=== PATIENT | female | born 1990 | race Hispanic/Latino ===

== ENCOUNTER 2020-12-09 14:54 | Emergency (ER) | payer OTHER ==
--- NOTE | 2020-12-09 16:35 | Emergency Department Report ---
ED General Adult HPI - General Chief complaint: Medical Clearance Stated complaint: AMS/ETOH PUI?: No Time Seen by Provider: 12/09/20 15:41 Source: patient, EMS ( EMS documentation not available at time of chart dictation ), RN notes reviewed Mode of arrival: Stretcher Limitations: Other (Patient not forthcoming) - History of Present Illness Initial comments: The patient was evaluated in the emergency department for symptoms described in the history of present illness. He/she was evaluated in the context of the global COVID-19 pandemic, which necessitated consideration that the patient might be at risk for infection with the virus that causes COVID-19. Institutional protocols and algorithms that pertain to the evaluation of patients at risk for COVID-19 are in a state of rapid change based on information released by regulatory bodies including the CDC and federal and state organizations. These policies and algorithms were followed during the patient's care in the emergency department. Please note that these policies, procedures and recommendations changed on a rapid basis. This is a 30-year-old female. She is not known to myself previously. She is brought to the hospital by police department and EMS for medical clearance for incarceration. EMS documentation is not available for my personal review. In addition, the original officers involved in her arrest, and who originally contacted medical services are not available for me to obtain collateral information. The patient is currently accompanied by Officer Gael Lira, who contacted his sergeant, however, they were not able to get me in contact with original arresting offices. History obtained from patient, and from nursing documentation reviewed. Apparently, this patient had a warrant out for her arrest, and apparently while getting arrested, began to act bizarrely, and may have had convulsions. The patient has no recollection of this event. The patient states that she has no headache, neck pain, chest pain, abdominal pain or shortness of breath. She denies Covid symptomatology. She is not homicidal or suicidal, and she is not experiencing hallucinations. She does not have access to guns or firearms. She does not recall the event. She states that she is not . She denies fever, chills, focal extremity weakness/numbness. She complains of nontraumatic left-sided otalgia/ear pain, "for a few weeks." It does not radiate anywhere, and she denies tinnitus, and loss of auditory acuity -: Sudden Quality: other Consistency: other Improves with: other Worsens with: other Associated Symptoms: other - Related Data Allergies Allergy/AdvReac Type Severity Reaction Status Date / Time No Known Allergies Allergy Unverified 12/09/20 17:23 ED Review of Systems ROS: Stated complaint: AMS/ETOH Other details as noted in HPI Constitutional: malaise. denies: fever Eyes: other (Denies loss of taste in) ENT: ear pain Respiratory: denies: cough Cardiovascular: denies: chest pain Gastrointestinal: denies: abdominal pain Genitourinary: denies: dysuria Neurological: weakness Psychiatric: denies: auditory hallucinations, visual hallucinations, homicidal thoughts, suicidal thoughts ED Past Medical Hx - Past Medical History Previous Medical History?: No - Surgical History Additional Surgical History: gastric sleeve, R leg - Social History Smoking Status: Unknown if ever smoked ED Physical Exam - General Limitations: No Limitations General appearance: in no apparent distress, anxious, obese - Head Head exam: Present: atraumatic, normocephalic - Eye Eye exam: Present: normal appearance, PERRL, EOMI. Absent: nystagmus - ENT ENT exam: Present: normal exam, normal orophraynx, mucous membranes moist, TM's normal bilaterally, normal external ear exam, other (There is no mastoid tenderness) - Neck Neck exam: Present: normal inspection, full ROM. Absent: tenderness, meningismus - Respiratory Respiratory exam: Present: normal lung sounds bilaterally. Absent: respiratory distress, wheezes, rales, rhonchi, stridor, decreased breath sounds - Cardiovascular Cardiovascular Exam: Present: regular rate, normal rhythm, normal heart sounds. Absent: bradycardia, tachycardia, irregular rhythm, systolic murmur, diastolic murmur, rubs, gallop - GI/Abdominal GI/Abdominal exam: Present: soft, normal bowel sounds. Absent: distended, tenderness, guarding, rebound, rigid, pulsatile mass - Extremities Exam Extremities exam: Present: normal inspection, full ROM, other (2+ pulses noted in the bilateral upper and lower extremities. There is no palpable cord. negative Homans sign. Muscular compartments are soft. The pelvis is stable.). Absent: pedal edema, calf tenderness - Back Exam Back exam: Present: normal inspection, full ROM. Absent: tenderness, CVA tenderness (R), CVA tenderness (L), paraspinal tenderness, vertebral tenderness - Neurological Exam Neurological exam: Present: alert, other (No facial droop. Tongue midline. Extraocular movements intact bilaterally. Facial sensation intact to light touch in V1, V2, V3 distribution bilaterally. 5 and a 5 strength in 4 extremities. Sensation intact to light touch in 4 extremities.). Absent: motor sensory deficit - Psychiatric Psychiatric exam: Present: flat affect. Absent: homicidal ideation, suicidal ideation - Skin Skin exam: Present: warm, dry, intact, normal color. Absent: rash ED Course Vital Signs 12/09/20 15:26 Temperature 98.2 F Pulse Rate 94 H Respiratory 20 Rate Blood Pressure 121/77 [Left] O2 Sat by Pulse 99 Oximetry - Reevaluation(s) Reevaluation #1: 12/09/20 16:36 Differential diagnosis, including but not limited to: Medical clearance for incarceration, malingering, structural intracranial abnormality, electrolyte derangement, thyroid derangement, toxic ingestion Assessment and plan: 30-year-old female, who is afebrile with reassuring vital signs, with an unremarkable physical examination, who is alert to name, place, location and month, knows who the president is, who is reportedly in her usual state of health, arrested, and then while going to police custody intake, had a nonspecific events of unresponsiveness and convulsion. I suspect that the patient is malingering. However, the patient is currently cooperative, not homicidal or suicidal. We recommended EKG, appropriate laboratory studies, urinalysis, swallow screen, serum and urine toxicology studies, and reassessment. Patient is amenable to this plan of care Reevaluation #2: 12/09/20 17:57 I am now able to evaluate and appreciate EMS documentation. EMS documentation indicates that patient had a warrant for arrest, was initially acting normally, and then having bizarre behavior, making strange sounds and crying. Patient was found sitting in the back of police car, calm. Patient was able to stand and sit, and was noted to be very restless and vocal. EMS documents normal vital signs in the field. Patient ambulates with a steady gait at this time. CT scan of the brain negative for acute findings. Laboratory studies unremarkable, urinalysis appreciated, patient denied urinary symptoms to myself. This patient has been observed in this ER for a few hours without clinical decompensation or any observed convulsive events. I suspect malingering/secondary gain as the primary contributing factor to patient's presentation. Nevertheless, she is cooperative, not homicidal, not suicidal, and does not meet criteria for 1013 hold or involuntary psychiatric confinement at this time. It also appears that she does not have emergent medical condition present at this time which would preclude incarceration. ED Medical Decision Making - Lab Data Result diagrams: 12/09/20 16:36 12/09/20 16:36 Vital Signs 12/09/20 15:26 Temperature 98.2 F Pulse Rate 94 H Respiratory 20 Rate Blood Pressure 121/77 [Left] O2 Sat by Pulse 99 Oximetry Vital Signs 12/09/20 15:26 Temperature 98.2 F Pulse Rate 94 H Respiratory 20 Rate Blood Pressure 121/77 [Left] O2 Sat by Pulse 99 Oximetry Lab Results 12/09/20 12/09/20 12/09/20 Range/Units 16:35 16:35 16:35 Hgb (10.1-14.3) gm/dl Hct (30.3-42.9) % Plt Count (140-440) K/mm3 Sodium (137-145) mmol/L Potassium (3.6-5.0) mmol/L Chloride (98-107) mmol/L Carbon Dioxide (22-30) mmol/L Anion Gap mmol/L BUN (7-17) mg/dL Creatinine (0.6-1.2) mg/dL Estimated GFR ml/min BUN/Creatinine Ratio % Glucose (65-100) mg/dL Calcium (8.4-10.2) mg/dL Total Bilirubin (0.1-1.2) mg/dL AST (5-40) units/L ALT (7-56) units/L Alkaline Phosphatase (35-129) units/L Total Creatine Kinase (30-135) units/L Total Protein (6.3-8.2) g/dL Albumin (3.9-5) g/dL Albumin/Globulin Ratio % TSH 1.320 (0.270-4.200) mlU/mL HCG, Quant < 2 (0-4) mIU/mL Urine Color (Yellow) Urine Turbidity (Clear) Urine pH (5.0-7.0) Ur Specific [place] (1.003-1.030) Urine Protein (Negative) mg/dL Urine Glucose (UA) (Negative) mg/dL Urine Ketones (Negative) mg/dL Urine Blood (Negative) Urine Nitrite (Negative) Urine Bilirubin (Negative) Urine Urobilinogen (<2.0) mg/dL Ur Leukocyte Esterase (Negative) Urine WBC (Auto) (0.0-6.0) /HPF Urine RBC (Auto) (0.0-6.0) /HPF U Epithel Cells (Auto) (0-13.0) /HPF Urine Bacteria (Auto) (Negative) /HPF Hyaline Casts /LPF Urine Mucus /HPF Salicylates < 0.3 L (2.8-20.0) mg/dL Urine Opiates Screen Urine Methadone Screen Acetaminophen (10.0-30.0) ug/mL Ur Barbiturates Screen Ur Phencyclidine Scrn Ur Amphetamines Screen U Benzodiazepines Scrn Urine Cocaine Screen U Marijuana (THC) Screen Drugs of Abuse Note Plasma/Serum Alcohol (0-0.07) % 12/09/20 12/09/20 12/09/20 Range/Units 16:35 16:36 16:36 Hgb 10.2 (10.1-14.3) gm/dl Hct 32.9 (30.3-42.9) % Plt Count 278 (140-440) K/mm3 Sodium 138 (137-145) mmol/L Potassium 3.7 (3.6-5.0) mmol/L Chloride 103.4 (98-107) mmol/L Carbon Dioxide 24 (22-30) mmol/L Anion Gap 14 mmol/L BUN 7 (7-17) mg/dL Creatinine 0.6 (0.6-1.2) mg/dL Estimated GFR > 60 ml/min BUN/Creatinine Ratio 12 % Glucose 98 (65-100) mg/dL Calcium 9.1 (8.4-10.2) mg/dL Total Bilirubin 0.40 (0.1-1.2) mg/dL AST 20 (5-40) units/L ALT 12 (7-56) units/L Alkaline Phosphatase 55 (35-129) units/L Total Creatine Kinase 104 (30-135) units/L Total Protein 7.0 (6.3-8.2) g/dL Albumin 4.0 (3.9-5) g/dL Albumin/Globulin Ratio 1.3 % TSH (0.270-4.200) mlU/mL HCG, Quant (0-4) mIU/mL Urine Color (Yellow) Urine Turbidity (Clear) Urine pH (5.0-7.0) Ur Specific [place] (1.003-1.030) Urine Protein (Negative) mg/dL Urine Glucose (UA) (Negative) mg/dL Urine Ketones (Negative) mg/dL Urine Blood (Negative) Urine Nitrite (Negative) Urine Bilirubin (Negative) Urine Urobilinogen (<2.0) mg/dL Ur Leukocyte Esterase (Negative) Urine WBC (Auto) (0.0-6.0) /HPF Urine RBC (Auto) (0.0-6.0) /HPF U Epithel Cells (Auto) (0-13.0) /HPF Urine Bacteria (Auto) (Negative) /HPF Hyaline Casts /LPF Urine Mucus /HPF Salicylates (2.8-20.0) mg/dL Urine Opiates Screen Urine Methadone Screen Acetaminophen 5.0 L (10.0-30.0) ug/mL Ur Barbiturates Screen Ur Phencyclidine Scrn Ur Amphetamines Screen U Benzodiazepines Scrn Urine Cocaine Screen U Marijuana (THC) Screen Drugs of Abuse Note Plasma/Serum Alcohol (0-0.07) % 12/09/20 12/09/20 12/09/20 Range/Units 16:36 Unknown Unknown Hgb (10.1-14.3) gm/dl Hct (30.3-42.9) % Plt Count (140-440) K/mm3 Sodium (137-145) mmol/L Potassium (3.6-5.0) mmol/L Chloride (98-107) mmol/L Carbon Dioxide (22-30) mmol/L Anion Gap mmol/L BUN (7-17) mg/dL Creatinine (0.6-1.2) mg/dL Estimated GFR ml/min BUN/Creatinine Ratio % Glucose (65-100) mg/dL Calcium (8.4-10.2) mg/dL Total Bilirubin (0.1-1.2) mg/dL AST (5-40) units/L ALT (7-56) units/L Alkaline Phosphatase (35-129) units/L Total Creatine Kinase (30-135) units/L Total Protein (6.3-8.2) g/dL Albumin (3.9-5) g/dL Albumin/Globulin Ratio % TSH (0.270-4.200) mlU/mL HCG, Quant (0-4) mIU/mL Urine Color Yellow (Yellow) Urine Turbidity Clear (Clear) Urine pH 6.0 (5.0-7.0) Ur Specific [place] 1.006 (1.003-1.030) Urine Protein <15 mg/dl (Negative) mg/dL Urine Glucose (UA) Neg (Negative) mg/dL Urine Ketones Tr (Negative) mg/dL Urine Blood Neg (Negative) Urine Nitrite Neg (Negative) Urine Bilirubin Neg (Negative) Urine Urobilinogen < 2.0 (<2.0) mg/dL Ur Leukocyte Esterase Neg (Negative) Urine WBC (Auto) 1.0 (0.0-6.0) /HPF Urine RBC (Auto) 2.0 (0.0-6.0) /HPF U Epithel Cells (Auto) < 1.0 (0-13.0) /HPF Urine Bacteria (Auto) 1+ (Negative) /HPF Hyaline Casts 1 /LPF Urine Mucus Few /HPF Salicylates (2.8-20.0) mg/dL Urine Opiates Screen Negative Urine Methadone Screen Negative Acetaminophen (10.0-30.0) ug/mL Ur Barbiturates Screen Negative Ur Phencyclidine Scrn Negative Ur Amphetamines Screen Positive U Benzodiazepines Scrn Negative Urine Cocaine Screen Negative U Marijuana (THC) Screen Positive Drugs of Abuse Note Disclamer Plasma/Serum Alcohol < 0.01 (0-0.07) % - EKG Data -: EKG Interpreted by Tn EKG shows normal: sinus rhythm Rate: normal - EKG Data When compared to previous EKG there are: previous EKG unavailable 12/09/20 16:38 There is no prior EKG available for comparison. EKG interpreted at 16: 30 Sinus rhythm, 70 bpm. Normal axis, normal intervals, high left ventricular voltage. This is an abnormal EKG. This is not a STEMI. There is no prior for comparison. - Radiology Data Radiology results: pending, report reviewed, image reviewed [facility] [address] [place] [address] Cat Scan Report Signed Patient: JONATHAN CANSECO MR#: [id number] 9 : 1990 Acct:[id number] Age/Sex: 30 / F ADM Date: 12/09/20 Loc: ED Attending Dr: Susan jorgensen Physician: TEX JONES MD Date of Service: 12/09/20 Procedure(s): CT head/brain wo con Accession Number(s): [id number] cc: TEX JONES MD CT head/brain wo con INDICATION: hx of convulsion. TECHNIQUE: Routine CT head. All CT scans at this location are performed using CT dose reduction for ALARA by means of automated exposure control. COMPARISON: None. FINDINGS: Intracranial: Brown-white matter differentiation is maintained. No intracranial hemorrhage. No extra axial collection. No hydrocephalus. No herniation. Sinuses: Paranasal sinuses and mastoid air cells are essentially clear. Orbits: Globes are intact. Calvarium: No acute fracture. IMPRESSION: 1. No acute intracranial abnormality. Signer Name: Emeka Monte MD Signed: 12/09/2020 5:33 PM Workstation Name: [id number] Transcribed By: CS Dictated By: Emeka Monte MD Electronically Authenticated By: Emeka Monte MD Signed Date/Time: 12/09/201732 DD/ 31 Critical care attestation.: If time is entered above; I have spent that time in minutes in the direct care of this critically ill patient, excluding procedure time. ED Disposition Clinical Impression: Medical clearance for incarceration, History of convulsions Disposition: DC/TX-65 PSY HOSP/PSY UNIT Is pt being admited?: No Does the pt Need Aspirin: No Condition: Good Additional Instructions: We recommend that the patient not drive or operate motor vehicles for the next 6 months. We recommend that the patient follow-up with a general medical doctor or neurologist for history of convulsions within the next 5 to 7 days. At this moment, patient does not appear to have an immediate medical contraindication to law enforcement incarceration at this time. Please return to the emergency room right away with new pain, worsened pain, migration of pain, projectile vomiting, change in mental status, confusion, inability to tolerate liquid feeds, new, worsened or different symptoms not present on the initial emergency room evaluation. Recommend that the patient have a primary care doctor or physician contact medical records department and obtain copies of laboratory studies and radiology studies within the next month to follow-up on nonemergent incidental abnormalities. Referrals: JERRY LONG MD [Referring] - 3-5 Days RIOS NEGRETE MD [Staff Physician] - 3-5 Days [facility] [Provider Group] - 3-5 Days
[2020-12-09 16:54] LABS: Hematocrit 32.9 % (30.3-42.9); Hemoglobin 10.2 gm/dl (10.1-14.3)
[2020-12-09 17:19] LABS: Alanine Aminotransferase 12 units/L (7-56); Blood Urea Nitrogen 7 mg/dL (7-17); Calcium 9.1 mg/dL (8.4-10.2); Hemolysis Index 4
[2020-12-09 17:22] LABS: BUN/Creatinine Ratio 12
[2020-12-09 17:32] LABS: Bacteria,Urine 1+ /HPF (Negative); Bilirubin,Urine NEG (Negative); Blood,Urine NEG (Negative); Color,Urine Yellow (Yellow); Hyaline Casts,Urine 1 /LPF; Mucus,Urine FEW /HPF; Protein,Urine <15 mg/dL mg/dL (Negative); Urobilinogen,Urine < 2.0 mg/dL (<2.0)
--- NOTE | 2020-12-09 17:37 | Cat Scan Report ---
CT head/brain wo con INDICATION: hx of convulsion. TECHNIQUE: Routine CT head. All CT scans at this location are performed using CT dose reduction for A ABHAY by means of automated exposure control. COMPARISON: None. FINDINGS: Intracranial: Brown-white matter differentiation is maintained. No intracranial hemorrhage. No extra a xial collection. No hydrocephalus. No herniation. Sinuses: Paranasal sinuses and mastoid air cells are essentially clear. Orbits: Globes are intact. Calvarium: No acute fracture. IMPRESSION: 1. No acute intracranial abnormality. Signer Name: Emeka Monte MD Signed: 12/09/2020 5:33 PM Workstation Name: [id number]
[2020-12-09 17:38] LABS: Benzodiazepines Screen,Urine Negative; Cocaine Screen,Urine Negative; Methadone Screen,Urine Negative; Opiate Screen,Urine Negative
[2020-12-09 17:51] LABS: Amphetamine Screen,Urine Positive; Cannabinoid Screen,Urine Positive
[2020-12-09 18:26] VITALS: BP 123/79
--- NOTE | 2020-12-10 10:54 | Electrocardiograph Report ---
[facility] Test Date: 2020-12-09 Test Time: 16:30:21 Pat Name: JONATHAN CANSECO Department: Room: Gender: F [employer]: : 1990 Requested By: TEX JONES Order Number: [id number] Reading MD: Pavan Wynne Measurements Intervals Hunter Rate: 70 P: 12 PA: 98 QRS: 63 QRSD: 81 T: 46 QT: 400 QTc: 432 Interpretive Statements Sinus rhythm No previous ECG available for comparison Electronically Signed On 12-10-2020 10:54:24 EDT by Pavan Wynne
== END 2020-12-09 18:40 ==
LOC: ED 14:54
DX: Z00.8 Encounter for other general examination (principal); Z87.898 Personal history of other specified conditions; Z98.890 Other specified postprocedural states
CPT/HCPCS: 36415; 70450; 80053; 80307; 80320; 81001; 82550; 84443; 84702; 85014; 85018; 85049; 93005; G0480